=== PATIENT | female | born 1995 ===

== ENCOUNTER 2021-06-14 14:37 | Emergency (ER) | payer OTHER ==
[2021-06-14] MEDS ORDERED: Ibuprofen 800 MG Tab PO ONE (14:38)
[2021-06-14] MEDS ORDERED: Ketorolac 30 MG/ML SDV IM ONE (17:10)
[2021-06-14] MEDS ORDERED: Ibuprofen 800 MG Tab ONE (17:30)
== END 2021-06-14 17:45 | disposition home or self-care (01) ==
LOC: DL.ED 14:37
DX: S39.012A Strain of muscle, fascia and tendon of lower back, initial encounter (principal); M62.830 Muscle spasm of back; E03.9 Hypothyroidism, unspecified; Z88.2 Allergy status to sulfonamides; Z79.899 Other long term (current) drug therapy; X58.XXXA Exposure to other specified factors, initial encounter
CPT/HCPCS: 81001; 81025; 96372; 99283; A9270; J1885